=== PATIENT | male | born 1995 | race Hispanic/Latino ===

== ENCOUNTER 2022-12-19 14:32 | Emergency (ER) | payer OTHER ==
[~2022-12-19] VITALS: Ht 172.7 cm; Wt 59.9 kg
[2022-12-19 14:35] VITALS: BP 151/74; PULSE 82; RESP 18
== END 2022-12-19 16:50 | disposition left against medical advice (07) ==
LOC: EDH 14:32
DX: L03.011 Cellulitis of right finger (principal); Z53.21 Procedure and treatment not carried out due to patient leaving prior to being seen by health care provider
CPT/HCPCS: 99281